=== PATIENT | male | born 1990 | race Caucasian/White ===

== ENCOUNTER 2017-01-24 12:36 | Emergency (ER) | payer SELFPAY ==
[~2017-01-24 12:36] MED LIST: BACTRIM DS 8001 TA1 PO; CLARITIN10 MG PO; HYDROCODONE BIT1 T11 PO; KEFLEX500 MG PO; MEDROL DOSEPAK4 MG PO; MOTRIN800 MG PO; NAPROSYN500 MG PO; ULTRAM50 MG PO; ZITHROMAX Z PA250 MG PO
== END 2017-01-24 14:51 | disposition home or self-care (01) ==
LOC: ED 12:36
DX: S05.01XA Injury of conjunctiva and corneal abrasion without foreign body, right eye, initial encounter (principal); F17.200 Nicotine dependence, unspecified, uncomplicated; X58.XXXA Exposure to other specified factors, initial encounter; Y92.9 Unspecified place or not applicable; Y92.89 Other specified places as the place of occurrence of the external cause; Y99.8 Other external cause status

== ENCOUNTER 2025-02-14 16:42 | Emergency (ER) | payer BC ==
[~2025-02-14] VITALS: Ht 180.3 cm; Wt 127.0 kg
[2025-02-14] MEDS ORDERED: IOHEXOL 300 MG/ML 100 ML VIAL IV ONE (17:15)
[2025-02-14 17:48] LABS: BASO # 0.1 10*3/uL (0.0-0.1); BASO % 0.5 % (0.0-1.0); EOS # 0.3 10*3/uL (0.0-0.4); EOS % 3.4 % (1.0-4.0); MEAN CELL VOLUME 92.6 fl (80.0-94.0); MEAN CORPUSCULAR HGB 31.3 pg (27.0-31.0); MEAN PLATELET VOLUME 9.7 fl (9.6-12.3); MONO # 0.7 10*3/uL (0.1-1.0); MONO % 8.1 % (3.0-9.0); NEUT # 5.7 10*3/uL (2.3-7.9); NEUT % 61.9 % (47.0-73.0); NUCLEATED RED BLOOD CELL 0.0 % (0.0-0.0); NUCLEATED RED BLOOD CELL 0.0 10*3/uL (0.0-0.0); PLATELET COUNT AUTOMATED 317 10*3/uL (130-400); RED CELL DISTRI WIDTH 12.3 % (0-14.5)
[2025-02-14] MEDS ORDERED: SODIUM CHLORIDE 0.9% 1,000 ML IV ONE (17:55)
[2025-02-14] MEDS ORDERED: HYDROmorphONE Hydrochloride 0.5 MG/0.5 ML SYRINGE IV ONE (17:55)
[2025-02-14] MEDS ORDERED: Ondansetron Hydrochloride 4 MG/2 ML VIAL IV ONE (17:55)
[2025-02-14 18:10] LABS: BUN 13 mg/dl (9-23)
[2025-02-14] MEDS ORDERED: PENICILLIN VK500 MG PO (20:48)
[2025-02-14] MEDS ORDERED: HYDROCODONE-AC1 EAC1 PO (20:48)
[2025-02-14] MEDS ORDERED: Motrin,Rufen800 MG PO (20:48)
[2025-02-14] MEDS ORDERED: PENICILLIN V POTASSIUM 500 MG TAB PO ONE (20:50)
== END 2025-02-14 20:51 | disposition home or self-care (01) ==
LOC: ED 16:42
PROVIDERS: Nurse Practitioner Family
DX: K04.7 Periapical abscess without sinus (principal); R60.0 Localized edema